=== PATIENT | male | born 1980 | race Caucasian/White ===

== ENCOUNTER 2022-07-02 17:55 | Emergency (ER) | payer BC ==
[2022-07-02 18:18] VITALS: BP 140/95; PULSE 80; RESP 18; TEMP 98.2; BMI 24.3
== END 2022-07-02 18:35 | disposition home or self-care (01) ==
LOC: FER 17:55
DX: K04.7 Periapical abscess without sinus (principal)
CPT/HCPCS: 99283-25

== ENCOUNTER 2024-01-08 21:31 | Emergency (ER) | payer BC ==
[2024-01-08 21:35] VITALS: BP 142/85; PULSE 76; RESP 16; TEMP 97.9; BMI 25.0
== END 2024-01-08 22:11 | disposition home or self-care (01) ==
LOC: FER 21:31
DX: H61.23 Impacted cerumen, bilateral (principal)
CPT/HCPCS: 99282-25